=== PATIENT | male | born 1955 | race Asian ===

== ENCOUNTER 2017-10-25 23:14 | Emergency (ER) | payer MEDICAID ==
[~2017-10-25] VITALS: Ht 167.6 cm; Wt 69.7 kg
[2017-10-25 23:33] VITALS: BP 170/97
[2017-10-26] MEDS ORDERED: METHOCARBAMOL 750 MG TABLET ONE (00:42)
[2017-10-26] MEDS ORDERED: IBUPROFEN 800 MG TABLET ONE (00:42)
[2017-10-26] MEDS ORDERED: IBUPROFEN 200 MG TABLET PO ONE (01:00)
[2017-10-26] MEDS ORDERED: METHOCARBAMOL 750 MG TABLET PO ONE (01:00)
== END 2017-10-26 02:55 | disposition home or self-care (01) ==
LOC: ED 10-26 02:30
DX: S29.012A Strain of muscle and tendon of back wall of thorax, initial encounter (principal); I10 Essential (primary) hypertension; E11.9 Type 2 diabetes mellitus without complications; W01.0XXA Fall on same level from slipping, tripping and stumbling without subsequent striking against object, initial encounter; Y93.89 Activity, other specified; Y92.009 Unspecified place in unspecified non-institutional (private) residence as the place of occurrence of the external cause; Y99.8 Other external cause status
CPT/HCPCS: 72072; 99284